=== PATIENT | female | born 1970 | race Caucasian/White ===

== ENCOUNTER 2024-05-24 21:31 | Observation (INO) ==
--- NOTE | 2024-05-24 21:41 | Emergency Department Note ---
Impression & Plan Chest pain, Acute hypokalemia ED Provider Note NAME: DARRYL LINDSEY AGE: 53 SEX: F : 1970 ARRIVES VIA: Walk-In INFORMANT: Patient, ED PROVIDER(S): Kulwinder Waldrop MD CHIEF COMPLAINT: Chest pain MEDICAL DECISION MAKING: Patient presents due to concern for chest pain. IV was established and blood work was obtained. Patient's blood work shows a normal white count H&H and platelet count kidney function is unremarkable mild hypokalemia. Initial troponin negative. EKG without signs of obvious ischemia but not having any active chest pain. Patient was ordered aspirin 324. Discussed given the patient's brief symptoms difficult to rule out here in the department did suggest overnight monitoring trending enzymes echo and potential discussion with cardiology. Patient is agreeable. I did speak with the on-call hospitalist service Dr. Dempsey and the patient was admitted to the medicine service. Patient was reassessed and states that she did have another brief episode of chest pain but was unable to get her call button to have a repeat EKG performed. Discussion w/ other healthcare providers: Dr. Dempsey inpatient medicine service Prior /Outside records reviewed: None Differential diagnosis: Cardiac ischemia, aortic dissection, pulmonary embolism, pneumothorax, pneumonia, pericarditis, myocarditis, GERD, cholecystitis, pancreatitis, musculoskeletal, as well as other pathologies were considered. Diagnostics, as interpreted by me: ECG: Sinus rhythm, rate of 74, normal intervals, normal axis T wave flattening in V2 no obvious ST elevations. Cardiac monitoring: An order was placed for continuous cardiac monitoring. The monitor shows a rate of 75 with sinus rhythm. Patient was placed on pulse oximetry Medical decision rules: Heart score Imaging studies: I informally interpreted the patient's chest x-ray does not show obvious pneumonia or pneumothorax, elevation of the right hemidiaphragm noted with formal report to follow. HPI: Patient presents due to concern for chest pains. The patient states that she noticed this about 3 weeks ago but is left-sided and would radiate underneath the left breast. The patient states that she had a subsequent episode 2 weeks ago as well as last week both were brief in duration lifting several minutes. The patient states though that today the patient experienced some pain that was left-sided with radiation toward the back and then as well some associated pain that she described as pressure to the left side of her jaw. Patient denies any known family history of heart attack or stroke in parents or siblings before the age of 65. Patient denies any cardiac or lung history. Patient is a non-smoker. Patient did use to take estrogen replacement therapy but stopped in April. No recent surgeries procedures or hospitalizations and no recent prolonged car plane travel. Patient denies any leg swelling or calf pain. Patient denies any cough or fever. PAST MEDICAL HISTORY: See Below PAST SURGICAL HISTORY: See Below SOCIAL HISTORY: See Below HOME MEDICATIONS: See Below ALLERGIES: See Below VITALS: See Below PHYSICAL EXAMINATION: GENERAL: NAD, non-toxic. EYE EXAM: Normal conjunctiva. PERRL, no anisocoria and EOM's grossly intact w/o pain. OROPHARYNX: Moist mucus membranes, grossly normal dentition. NECK: Trachea midline, no stridor. Supple, no nuchal rigidity, no adenopathy, non-tender. No signs of meningismus. FROM of the neck with good chin to chest and neck extension. LUNGS: Clear to auscultation. Normal chest wall mechanics. HEART: NSR, no MRG. ABDOMEN: Abdomen soft, non-tender, no masses, no rebound or guarding. BACK: No CVA TTP. SKIN: No rashes and no bruising. UPPER EXTREMITIES: Upper extremities are grossly normal. LOWER EXTREMITIES: Grossly normal, no edema. Negative Homans' sign bilaterally. NEURO EXAM: A&O x3, cranial nerves II-XII grossly intact, normal speech, moves all 4 extremities. Past Med/Surg History Problem List (Updated 05/25/24 @ 00:06 by Kulwinder Waldrop MD) Acute hypokalemia (Acute) Chest pain (Acute) Hypothyroidism since age 28 Crohn's disease Hemorrhoids Diarrhea Medical History Hx of colonic polyps History of COVID-19 12/2020: moderate flu symptoms, since resolved Crohn disease no medications, manages with diet. History of melanoma in situ 2013 s/p excision - L mid back Surgical History H/O melanoma excision (2013) History of colonoscopy 07/2020 dx with Crohn's disease Family History Father Colorectal cancer Mother Diabetes Hypertension Sister Crohn's disease Ulcerative colitis Grandmother (Paternal) Heart disease Brother Prostate cancer Other No family history of adverse response to anesthesia Denies family history of Ovarian cancer Myocardial infarction Breast cancer Lung cancer Stroke Social History Smoking Status: Never smoker Second Hand Exposure: No; Do You Dip or Chew Tobacco: No; Hx Alcohol Use: Yes Alcohol Intake Frequency: Monthly or Less Hx Substance Use: No Preferred Language: Bur[place]ian Communication Ability: Effective Visual Impairment: Limited Hearing Ability: Normal Wireless Development Manager Required: No Beliefs That Will Affect Care: None marital status: Current Living Situation: Spouse current occupational status: employed How many Children do You have: 2 Feels Safe at Home: Yes Childhood Exposure to Second-Hand Smoke: No Diet: regular caffeine: Yes Dental Care, Regularly: Yes Physical Activity Frequency: 3-4 Times per Week Seatbelt Use: always Sunscreen Use: Yes Assistive Devices: Glasses Allergies Allergies Allergy/AdvReac Type Severity Reaction Status Date / Time No Known Allergies Allergy Verified 02/02/24 11:05 Home Meds Home Medications Medication Instructions Recorded Confirmed estradiol 2 mg tablet 1 mg PO QAM 01/23/24 02/02/24 levothyroxine 50 mcg tablet 50 mcg PO QAM 01/23/24 02/02/24 progesterone micronized 100 mg 100 mg PO HS 01/23/24 02/02/24 capsule Results & Data (ED) Vital Signs Vital Signs - 24 hr 05/24/24 21:31 05/24/24 21:31 05/24/24 21:31 Temperature Temperature Source Pulse Rate 76 Pulse Rate [Right Brachial] 76 Pulse Rhythm Regular Pulse Rhythm [Right Brachial] Regular Pulse Strength [Right Brachial] Normal Respiratory Rate 24 20 Respiratory Effort / Characteristics Non-Labored Respiratory Depth Normal Respiratory Pattern Regular Blood Pressure Blood Pressure [Right Arm] 140/80 Blood Pressure Mean Blood Pressure Mean [Right Arm] 100 Blood Pressure Position [Right Arm] Lying Pulse Oximetry 96 96 Oxygen Delivery Method Room Air Room Air Room Air Sepsis Recent Fever Within 48 Hours Sepsis New/Unexplained Change in Mental Status Sepsis Action Taken by Nursing 05/24/24 21:34 05/24/24 21:37 05/24/24 21:55 Temperature 37.2 C Temperature Source Temporal Artery Scan Pulse Rate 91 H 76 83 Pulse Rate [Right Brachial] Pulse Rhythm Regular Pulse Rhythm [Right Brachial] Pulse Strength [Right Brachial] Respiratory Rate 17 20 Respiratory Effort / Characteristics Respiratory Depth Normal Respiratory Pattern Blood Pressure 148/92 H Blood Pressure [Right Arm] Blood Pressure Mean 110 Blood Pressure Mean [Right Arm] Blood Pressure Position [Right Arm] Pulse Oximetry 97 96 Oxygen Delivery Method Room Air Room Air Sepsis Recent Fever Within 48 Hours No Sepsis New/Unexplained Change in Mental Status No Sepsis Action Taken by Nursing No Action Required Home Medications Current Medication List: was personally reviewed by me Laboratory Data Attestation: I reviewed the patient's lab results. 05/24/24 21:46 05/24/24 21:46 Lab Results 05/24/24 Range/Units 21:46 WBC 6.83 (4.8-10.8) K/ul RBC 4.87 (4.20-5.40) M/uL Hgb 14.0 (12.0-16.0) g/dl Hct 42.0 (37.0-47.0) % MCV 86.2 (80.0-100.0) fL MCH 28.7 (25.0-34.0) pg MCHC 33.3 (32.0-36.0) g/dL RDW Std Deviation 39.6 (36.4-46.3) fL RDW Coeff of Rogers 12.7 (11.5-14.5) % Plt Count 317 (130-400) K/uL MPV 8.9 L (9.4-12.4) fL Immature Gran % (Auto) 0.1 % Neut % (Auto) 39.1 % Lymph % (Auto) 48.6 % [place] % (Auto) 9.5 % Eos % (Auto) 1.8 % Baso % (Auto) 0.9 % Neut # (Auto) 2.67 (1.40-6.50) K/uL Lymph # (Auto) 3.32 (1.20-3.40) K/uL [place] # (Auto) 0.65 H (0.11-0.59) K/uL Eos # (Auto) 0.12 (0.00-0.50) K/uL Baso # (Auto) 0.06 (0.00-0.20) K/uL Immature Gran # (Auto) 0.01 (0.01-0.20) K/uL Sodium 139 (136-145) mmol/L Potassium 3.4 L (3.5-5.1) mmol/L Chloride 102 (98-107) mmol/L Carbon Dioxide 29 (21-32) mmol/L Anion Gap 8 (3-11) BUN 14 (6-23) mg/dl Creatinine 0.79 (0.6-1.2) mg/dl Est Cr Clr Drug Dosing 93.3 ml/min eGFR 89.95 BUN/Creatinine Ratio 17.7 (10-20) Glucose 97 (70-99(Fasting)) mg/dl Calcium 9.8 (8.6-10.3) mg/dl Total Bilirubin 0.9 (0.2-1.0) mg/dl AST 21 (13-39) U/L ALT 20 (7-52) U/L Alkaline Phosphatase 51 (34-104) U/L Troponin I High Sens 13.1 (0-14) pg/ml Total Protein 7.8 (6.0-8.3) gm/dl Albumin 4.6 (3.4-5.0) gm/dl Globulin 3.2 (2.5-4.0) gm/dl Albumin/Globulin Ratio 1.4 (0.9-2) Lipase 33 (11-82) U/L Administered Medications Discontinued Medications Aspirin (Aspirin Chew 324 Mg) 324 mg PO NOW STA Stop: 05/24/24 22:22 Last Admin: 05/24/24 22:27 Dose: 324 mg Documented By: ROMI Ioversol (Optiray 320 125ml) 120 ml IV ONCE ONE Stop: 05/24/24 23:30 Last Admin: 05/24/24 23:30 Dose: 120 ml Documented By: KSF Discharge Plan Visit Data Chief Complaint: Chest Pain Stated Complaint: CHEST PAIN ED Provider: Kulwinder Waldrop Discharge Problem: Chest pain, Acute hypokalemia Forms Stand Alone Forms: My Novat[facility] Prescriptions Prescriptions: No Action levothyroxine 50 mcg tablet 50 mcg PO QAM estradiol 2 mg tablet 1 mg PO QAM progesterone micronized 100 mg capsule 100 mg PO HS Referrals Referrals: Artem Jerry DO [Primary Care Provider] - Discharge Problem: Chest pain Qualifiers: Chest pain type: unspecified Qualified Code(s): R07.9 - Chest pain, unspecified
[2024-05-24 22:06] LABS: Basophils # (auto) 0.06 K/uL (0.00-0.20); Basophils % (auto) 0.9 %; Eosinophils # (auto) 0.12 K/uL (0.00-0.50); Eosinophils % (auto) 1.8 %; Immature Granulocytes # (auto) 0.01 K/uL (0.01-0.20); Immature Granulocytes % (auto) 0.1 %; Lymphocytes # (auto) 3.32 K/uL (1.20-3.40); Lymphocytes % (auto) 48.6 %; Mean Corpuscular Hemoglobin 28.7 pg (25.0-34.0); Mean Corpuscular Hgb Conc 33.3 g/dL (32.0-36.0); Mean Corpuscular Volume 86.2 fL (80.0-100.0); Mean Platelet Volume 8.9 fL (9.4-12.4); Monocytes # (auto) 0.65 K/uL (0.11-0.59); Monocytes % (auto) 9.5 %; Neutrophils # (auto) 2.67 K/uL (1.40-6.50); Neutrophils % (auto) 39.1 %; Platelet Count 317 K/uL (130-400); RDW Coefficient of Variation 12.7 % (11.5-14.5); RDW Standard Deviation 39.6 fL (36.4-46.3); Red Blood Count 4.87 M/uL (4.20-5.40); White Blood Count 6.83 K/ul (4.8-10.8)
[2024-05-24 22:13] LABS: Albumin Globulin Ratio 1.4 (0.9-2); Albumin Level 4.6 gm/dl (3.4-5.0); BUN Creatinine Ratio 17.7 (10-20); Bilirubin,Total 0.9 mg/dl (0.2-1.0); Calcium 9.8 mg/dl (8.6-10.3); Creatinine Clr Calc Pharmacy 93.3 ml/min; Globulin 3.2 gm/dl (2.5-4.0); Potassium 3.4 mmol/L (3.5-5.1); Total Protein 7.8 gm/dl (6.0-8.3)
[2024-05-24 22:20] LABS: Troponin I High Sensitivity 13.1 pg/ml (0-14)
[2024-05-24] MEDS: ASPIRIN CHEW 324 MG PO STA (22:27)
[2024-05-24] MEDS: OPTIRAY 320 125ml IV ONE (23:30)
--- NOTE | 2024-05-24 23:30 | History & Physical Report ---
Date of Service May 24, 2024 Assessment & Plan (1) Chest pain: (2) Hypothyroidism: (3) Crohn's disease: (4) Acute hypokalemia: Plan Atypical chest pain- Patient reports increasing frequency, duration and intensity past 4 weeks, with particular over the past evening. The patient will be admitted to telemetry for serial cardiac enzymes, serial EKG's, cardiac rhythm monitoring and a 2-D echocardiogram with Dopplers. CT angiography PE protocol was negative for PE, and aortic dissection Initial troponin of 13.1, with follow-up 11.4 She did receive aspirin 324 mg upon arrival Patient reports that she has been increasing running, and was actually planning on [place] [employer] [email or web address] with her 10-year-old granddaughter on 05/26 Would be unable to have a stress test done over the weekend, will therefore consult cardiology for their opinion on whether she can safely run a 5K run, if her workup is otherwise negative Crohn's disease- Patient reports 4-5 many flares a week, but does not describe any symptoms of GERD with or without esophagitis It is possible her symptoms may be related to this underlying disease Will give pantoprazole 40 mg IV now, and 40 mg p.o. every morning. If cardiac workup is negative, a trial of PPI would probably be evaluated Hypokalemia- Potassium 3.4 on admission, will recheck in the a.m. after diet this evening Add magnesium level Hypothyroidism Dosing has been stable on levothyroxine 50 mcg daily History of Present Illness Chief Complaint: The patient presents to the emergency department, with her present in the room also, with complaint of increasing frequency, duration, and intensity of left sided chest pain over the past 4 weeks. Primary Care Provider: Artem Jerry DO The patient is a 53-year-old female with a past medical history including hypothyroidism, and Crohn's disease with many flares averaging 4-5 times per week. She reports that about 4 weeks ago, was the first time she had left-sided chest pain, woke her up at night when she was sleeping, and went away very quickly. A similar process happened 3 weeks ago, and then 2 weeks ago. This most recent instance this evening, would last for 2 to 3 minutes on, then be off for a few minutes, and then recurred again. This occurred over an interval of 30 minutes, she became concerned, and decided to come to the ED for assessment. She reports that she has been running more over the past 2 months, and was planning on running a 5K with her 10-year-old granddaughter in 2 days. Allergies Allergy/AdvReac Type Severity Reaction Status Date / Time No Known Allergies Allergy Verified 02/02/24 11:05 Home Medications Medication Instructions Recorded Confirmed Type levothyroxine 50 mcg tablet 50 mcg PO QAM 01/23/24 05/25/24 History Past Med/Surg History Problem List (Updated 05/25/24 @ 00:06 by Kulwinder Waldrop MD) Acute hypokalemia (Acute) Chest pain (Acute) Hypothyroidism since age 28 Crohn's disease Hemorrhoids Diarrhea Medical History Hx of colonic polyps History of COVID-19 12/2020: moderate flu symptoms, since resolved Crohn disease no medications, manages with diet. History of melanoma in situ 2013 s/p excision - L mid back Surgical History H/O melanoma excision (2013) History of colonoscopy 07/2020 dx with Crohn's disease Family History Father Colorectal cancer Mother Diabetes Hypertension Sister Crohn's disease Ulcerative colitis Grandmother (Paternal) Heart disease Brother Prostate cancer Other No family history of adverse response to anesthesia Denies family history of Ovarian cancer Myocardial infarction Breast cancer Lung cancer Stroke Social History Smoking Status: Never smoker Second Hand Exposure: No; Do You Dip or Chew Tobacco: No; Hx Alcohol Use: Yes Alcohol Intake Frequency: Monthly or Less Hx Substance Use: No Preferred Language: Icelandic Communication Ability: Effective Visual Impairment: Limited Hearing Ability: Normal Instrumentation Controls Engineer Required: No Beliefs That Will Affect Care: None marital status: Current Living Situation: Spouse current occupational status: employed How many Children do You have: 2 Other Information That Helps Us Care for You: No Feels Safe at Home: Yes Safety Concerns: Feels Safe At This Time Childhood Exposure to Second-Hand Smoke: No Diet: regular caffeine: Yes Dental Care, Regularly: Yes Physical Activity Frequency: 3-4 Times per Week Seatbelt Use: always Sunscreen Use: Yes Assistive Devices: None Review of Systems Review of Systems: The patient denies palpitations, shortness of breath, dyspnea on exertion, cough, lower extremity swelling, sore throat, fevers, chills, sweats, fatigue, nausea, vomiting, diarrhea , constipation, abdominal pain, pelvic pain, blood in urine or stool, dysuria, urinary frequency or urgency, lightheadedness, dizziness, headache, memory loss, loss of consciousness, rash, abnormal bruising or bleeding, imbalance, focal or generalized weakness, numbness or tingling in arms or legs, generalized arthralgias or myalgias, back or neck pain, or night sweats. The review of systems is otherwise negative other than for that already noted above, and at least 10 systems have been reviewed. Physical Exam Physical Exam: The patient is awake, alert and oriented 3, well developed and well nourished, normocephalic and atraumatic, lying in bed and in no acute distress. HEENT--PERRL, EOMI, mucous membranes and oropharynx normal Neck--supple. No JVD. No bruits. Thyroid normal, trachea midline, no adenopathy. Heart--normal S1 and S2. No murmurs, rubs or gallops. Lungs--clear bilaterally, no respiratory distress, no accessory muscle use. Abdomen--normal bowel sounds and soft. Nontender. Nondistended, no hernias or masses, no organomegaly. Extremities--no cyanosis or clubbing. No edema. Dermatologic--normal skin turgor, normal color, no abnormal lymph nodes, no rash. Neurologic--cranial nerves II through XII grossly intact. Rheumatologic--normal range of motion. Psychiatric--normal affect. Results & Data Results & Data Vital Signs (Past 12 Hours) Vital Signs Temp Pulse Pulse Resp BP BP Pulse Ox 05/24/24 21:55 83 05/24/24 21:37 76 20 96 05/24/24 21:34 37.2 C 91 H 17 148/92 H 97 05/24/24 21:31 76 20 96 05/24/24 21:31 76 24 140/80 96 05/24/24 21:31 O2 Del Method 05/24/24 21:55 05/24/24 21:37 Room Air 05/24/24 21:34 Room Air 05/24/24 21:31 Room Air 05/24/24 21:31 Room Air 05/24/24 21:31 Room Air Laboratory Results Laboratory Results WBC 6.83 K/ul (4.8-10.8) 05/24/24 21:46 RBC 4.87 M/uL (4.20-5.40) 05/24/24 21:46 Hgb 14.0 g/dl (12.0-16.0) 05/24/24 21:46 Hct 42.0 % (37.0-47.0) 05/24/24 21:46 MCV 86.2 fL (80.0-100.0) 05/24/24 21:46 MCH 28.7 pg (25.0-34.0) 05/24/24 21:46 MCHC 33.3 g/dL (32.0-36.0) 05/24/24 21:46 RDW Std Deviation 39.6 fL (36.4-46.3) 05/24/24 21:46 RDW Coeff of Rogers 12.7 % (11.5-14.5) 05/24/24 21:46 Plt Count 317 K/uL (130-400) 05/24/24 21:46 MPV 8.9 fL (9.4-12.4) L 05/24/24 21:46 Immature Gran % (Auto) 0.1 % 05/24/24 21:46 Neut % (Auto) 39.1 % 05/24/24 21:46 Lymph % (Auto) 48.6 % 05/24/24 21:46 [place] % (Auto) 9.5 % 05/24/24 21:46 Eos % (Auto) 1.8 % 05/24/24 21:46 Baso % (Auto) 0.9 % 05/24/24 21:46 Neut # (Auto) 2.67 K/uL (1.40-6.50) 05/24/24 21:46 Lymph # (Auto) 3.32 K/uL (1.20-3.40) 05/24/24 21:46 [place] # (Auto) 0.65 K/uL (0.11-0.59) H 05/24/24 21:46 Eos # (Auto) 0.12 K/uL (0.00-0.50) 05/24/24 21:46 Baso # (Auto) 0.06 K/uL (0.00-0.20) 05/24/24 21:46 Immature Gran # (Auto) 0.01 K/uL (0.01-0.20) 05/24/24 21:46 Sodium 139 mmol/L (136-145) 05/24/24 21:46 Potassium 3.4 mmol/L (3.5-5.1) L 05/24/24 21:46 Chloride 102 mmol/L (98-107) 05/24/24 21:46 Carbon Dioxide 29 mmol/L (21-32) 05/24/24 21:46 Anion Gap 8 (3-11) 05/24/24 21:46 BUN 14 mg/dl (6-23) 05/24/24 21:46 Creatinine 0.79 mg/dl (0.6-1.2) 05/24/24 21:46 Est Cr Clr Drug Dosing 93.3 ml/min 05/24/24 21:46 eGFR 89.95 05/24/24 21:46 BUN/Creatinine Ratio 17.7 (10-20) 05/24/24 21:46 Glucose 97 mg/dl (70-99(Fasting)) 05/24/24 21:46 Calcium 9.8 mg/dl (8.6-10.3) 05/24/24 21:46 Total Bilirubin 0.9 mg/dl (0.2-1.0) 05/24/24 21:46 AST 21 U/L (13-39) 05/24/24 21:46 ALT 20 U/L (7-52) 05/24/24 21:46 Alkaline Phosphatase 51 U/L (34-104) 05/24/24 21:46 Troponin I High Sens 11.4 pg/ml (0-14) 05/25/24 00:27 Total Protein 7.8 gm/dl (6.0-8.3) 05/24/24 21:46 Albumin 4.6 gm/dl (3.4-5.0) 05/24/24 21:46 Globulin 3.2 gm/dl (2.5-4.0) 05/24/24 21:46 Albumin/Globulin Ratio 1.4 (0.9-2) 05/24/24 21:46 Lipase 33 U/L (11-82) 05/24/24 21:46 Code Status & VTE Plan Code Status Full code VTE Prophylaxis Plan VTE Prophylaxis will be ordered: Yes PG Care Time/CCT Total # of Minutes Spent Total Time Spent with Patient: Total time spent is greater than 50% in coordination of care (as documented) at patient's floor/unit and/or counseling patient: Coding Level of Care Code 04729 INT INP/OBS CARE 3/75MIN Diagnoses Chest pain R07.9 Chest pain type: unspecified Hypothyroidism E03.9 Crohn's disease K50.90 Acute hypokalemia E87.6 (1) Chest pain Chest pain type: unspecified Qualified Code(s): R07.9 - Chest pain, unspecified
[2024-05-25] MEDS: PANTOprazole 40 MG/10 ML SYR IV ONE (00:13)
[2024-05-25] MEDS ORDERED: ONDANSETRON INJ 2 MG/ML 2 ML VIAL IV PRN (01:04)
[2024-05-25] MEDS ORDERED: ACETAMINOPHEN 325 MG TAB PO PRN (01:04)
[2024-05-25] MEDS ORDERED: NITROGLYCERIN SL 0.4 MG/TAB TAB SL PRN (01:04)
[2024-05-25 01:30] VITALS: RESP 18; TEMP 97.7
[2024-05-25] MEDS: LEVOTHYROXINE SODIUM 50 MCG TABLET PO SCH (05:59)
[2024-05-25 06:48] LABS: Calcium 8.9 mg/dl (8.6-10.3); Creatinine Clr Calc Pharmacy 92.1 ml/min; Magnesium 1.9 mg/dl (1.7-2.4)
[2024-05-25 07:12] VITALS: BP 104/62; O2SAT 96
--- NOTE | 2024-05-25 07:20 | Electrocardiogram Report ---
Test Reason : Blood Pressure : */* mmHG Vent. Rate : 74 BPM Atrial Rate : 74 BPM P-R Int : 172 ms QRS Dur : 74 ms QT Int : 396 ms P-R-T Axes : 5 53 32 degrees QTcB Int : 439 ms Normal sinus rhythm Normal ECG No previous ECGs available Confirmed by Ludwin Crocker ([id number]) on 05/25/2024 7:19:44 AM Referred By: REFERRED SELF Confirmed By: Ludwin Crocker
--- NOTE | 2024-05-25 09:03 | Cardiology Consultation ---
Date of Consultation May 25, 2024 Assessment & Plan (1) Chest pain: Plan 1. Chest pain: Atypical for a cardiac etiology as it occurs at rest and is very brief in duration. There are no objective findings of ischemia. Her EKG is normal and her biomarkers are also normal. She apparently had 2 additional episodes of symptoms while she was in the emergency room without noted abnormality on telemetry. A chest CTA was performed and was reportedly normal (although the formal report is still pending at the time of this dictation). Echocardiogram was normal. Telemetry was normal. She exercises regularly despite having these symptoms over period of 3 weeks. 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 Possibly related to gastrointestinal disturbance, IE reflux or spasm. If her CTA is truly normal I think she can be safely discharged and participate in the scheduled 5 km run tomorrow. I do not think she requires any specific follow-up in our clinic in the absence of new or worsening symptoms. History of Present Illness Reason for Consultation: Chest pain Requesting Physician: Tomas Attending Physician: Jordyn Davis MD History of Present Illness The patient is a 53-year-old woman without a known history of cardiac disease who presented to the emergency room with symptoms of chest pain. The patient states that approximately 3 weeks ago she had an episode of chest pain at rest. This was precordial in location. It was described as a pressure type sensation. There is no radiation at that time and this symptom was of moderate intensity. She did take some deep breaths in an attempt to relieve the symptom but did not feel short of breath or dizzy. There was no pleuritic pain. There is no associated palpitation. This symptom lasted less than 1 minute and resolved. Several days later she had another similar episode of the same character and duration. Last evening she had an episode that was similar but also involves some back discomfort. This episode also lasted approximately 1 minute and then resolved without intervention. Based on the recurrent nature of her symptoms and the involvement of back discomfort she elected to come to the emergency room for an evaluation. The patient has been very active lately. She has been training for a 5K event scheduled for tomorrow. Her training program involves running 2 to 3 miles 3 times weekly. She did not report any symptoms associated with that activity. She has not had any exertional chest pain. She has not had to alter or reduce her training program recently. She also engages in resistance training. No symptoms associated with that activity. She did discontinue hormone replacement therapy a little over a month ago. This is resulted in some "hot flashes" and other relatively mild symptoms. She does not have any strong family history of heart disease. Allergies Allergy/AdvReac Type Severity Reaction Status Date / Time No Known Allergies Allergy Verified 02/02/24 11:05 Home Medications Medication Instructions Recorded Confirmed Type levothyroxine 50 mcg tablet 50 mcg PO QAM 01/23/24 05/25/24 History Patient History Medical History Hx of colonic polyps History of COVID-19 12/2020: moderate flu symptoms, since resolved Crohn disease no medications, manages with diet. History of melanoma in situ 2013 s/p excision - L mid back Surgical History H/O melanoma excision (2013) History of colonoscopy 07/2020 dx with Crohn's disease Family History Father Colorectal cancer Mother Diabetes Hypertension Sister Crohn's disease Ulcerative colitis Grandmother (Paternal) Heart disease Brother Prostate cancer Other No family history of adverse response to anesthesia Denies family history of Ovarian cancer Myocardial infarction Breast cancer Lung cancer Stroke Social History Smoking Status: Never smoker Second Hand Exposure: No; Do You Dip or Chew Tobacco: No; Hx Alcohol Use: Yes Alcohol Intake Frequency: Monthly or Less Hx Substance Use: No Preferred Language: Tuvaluan Communication Ability: Effective Visual Impairment: Limited Hearing Ability: Normal Screen Vent Binder Required: No Beliefs That Will Affect Care: None marital status: Current Living Situation: Spouse current occupational status: employed How many Children do You have: 2 Feels Safe at Home: Yes Childhood Exposure to Second-Hand Smoke: No Diet: regular caffeine: Yes Dental Care, Regularly: Yes Physical Activity Frequency: 3-4 Times per Week Seatbelt Use: always Sunscreen Use: Yes Assistive Devices: None Review of Systems Review of Systems: Per HPI. She does have some abdominal discomfort and symptoms from Crohn's disease on a fairly regular basis. She manages this with diet and the symptoms are reportedly mild. Generally she does not have indigestion or stomach trouble. Physical Exam Physical Exam: She is alert and oriented x3. Mood affect appear normal. She answered all questions appropriately. HEENT: Sclerae are anicteric. Pupils are equal and reactive to light and accommodation. Extraocular movements were intact. Neuro: Cranial nerves intact Neck: Examination of the submandibular region did not reveal any significant lymphadenopathy. Carotids are palpable bilaterally and free of bruits on auscultation. There was no evidence of jugular venous distention. The thyroid was not enlarged. Chest: No pain with palpation of the precordium or chest. Lungs: Lungs are clear to auscultation bilaterally. There are no rales wheezes or rhonchi. She has normal respiratory effort without use of accessory muscles. There is normal pulmonary excursion. Cardiac: The rhythm was regular. S1 and S2 were normal. There are no murmurs on examination. The PMI was not markedly displaced on palpation. Abdomen: The abdomen was soft and nontender. Extremities: Patient has bilateral radial pulses that are equal in intensity. There is no evidence cyanosis or clubbing. There was no evidence of significant peripheral edema bilaterally. Skin: There are no rashes noted on examination today. Results & Data Vital Signs (Past 12 Hours) Vital Signs Temp Pulse Pulse Resp BP BP Pulse Ox 05/25/24 07:11 36.5 C 65 18 104/62 96 05/25/24 06:35 106/65 05/25/24 04:18 36.5 C 71 18 97/68 L 94 05/25/24 01:04 36.5 C 80 18 111/73 94 05/25/24 00:55 63 05/25/24 00:25 80 20 126/65 96 05/25/24 00:17 80 20 126/65 96 05/24/24 21:55 83 05/24/24 21:37 76 20 96 05/24/24 21:34 37.2 C 91 H 17 148/92 H 97 05/24/24 21:31 76 20 96 05/24/24 21:31 76 24 140/80 96 05/24/24 21:31 O2 Del Method 05/25/24 07:11 Room Air 05/25/24 06:35 05/25/24 04:18 Room Air 05/25/24 01:04 Room Air 05/25/24 00:55 05/25/24 00:25 Room Air 05/25/24 00:17 Room Air 05/24/24 21:55 05/24/24 21:37 Room Air 05/24/24 21:34 Room Air 05/24/24 21:31 Room Air 05/24/24 21:31 Room Air 05/24/24 21:31 Room Air Laboratory Results Abnormal Lab Results 05/24/24 05/25/24 05/25/24 21:46 00:27 06:11 WBC 6.83 RBC 4.87 Hgb 14.0 Hct 42.0 MCV 86.2 MCH 28.7 MCHC 33.3 RDW Std Deviation 39.6 RDW Coeff of Rogers 12.7 Plt Count 317 MPV 8.9 L Immature Gran % (Auto) 0.1 Neut % (Auto) 39.1 Lymph % (Auto) 48.6 [facility] % (Auto) 9.5 Eos % (Auto) 1.8 Baso % (Auto) 0.9 Neut # (Auto) 2.67 Lymph # (Auto) 3.32 [facility] # (Auto) 0.65 H Eos # (Auto) 0.12 Baso # (Auto) 0.06 Immature Gran # (Auto) 0.01 Sodium 139 142 Potassium 3.4 L 4.0 Chloride 102 109 H Carbon Dioxide 29 27 Anion Gap 8 6 BUN 14 12 Creatinine 0.79 0.80 Est Cr Clr Drug Dosing 93.3 92.1 eGFR 89.95 88.60 BUN/Creatinine Ratio 17.7 15.0 Glucose 97 115 H Calcium 9.8 8.9 Magnesium 1.9 Total Bilirubin 0.9 AST 21 ALT 20 Alkaline Phosphatase 51 Troponin I High Sens 13.1 11.4 10.8 Total Protein 7.8 Albumin 4.6 Globulin 3.2 Albumin/Globulin Ratio 1.4 Lipase 33 Diagnostic Findings Chest CTA: No evidence of aortic dissection or pulmonary embolus by report (formal report still pending at the time of this dictation) Echocardiogram obtained today did not reveal any notable abnormalities. Preserved LV systolic function without regional wall motion abnormalities. No significant valvular heart disease. No pericardial effusion. PG Care Time/CCT Total # of Minutes Spent Total Time Spent with Patient: Total time spent is greater than 50% in coordination of care (as documented) at patient's floor/unit and/or counseling patient: Coding Level of Care Code 15367 IN/OBS CONSULT LVL 4,60M Diagnoses Chest pain R07.9 Chest pain type: unspecified (1) Chest pain Chest pain type: unspecified Qualified Code(s): R07.9 - Chest pain, unspecified
[2024-05-25] MEDS: CYANOCOBALAMIN (B-12) 500 MCG TABLET PO SCH (09:51)
[2024-05-25] MEDS: CHOLECALCIFEROL 25 MCG (1000 UNITS) TAB PO SCH (09:51)
[2024-05-25] MEDS: ASPIRIN 81 MG ECTAB PO SCH (09:51)
[2024-05-25] MEDS: PANTOprazole 40 MG TAB PO SCH (09:52)
[2024-05-25 10:05] VITALS: PULSE 66
--- NOTE | 2024-05-25 10:34 | Discharge Summary ---
Discharge Summary Date of Service May 25, 2024 Principal Dx & Hospital Course #1 = Principal Diagnosis (1) Chest pain: (2) Hypothyroidism: (3) Crohn's disease: (4) Acute hypokalemia: Plan Atypical chest pain- Ruled out for ACS with serial cardiac enzymes. No arrhythmic events recorded on tele. Cardiology consultation completed - outpatient follow up Crohn's disease- Patient reports 4-5 many flares a week, but does not describe any symptoms of GERD with or without esophagitis It is possible her symptoms may be related to this underlying disease If cardiac workup is negative, a trial of PPI would probably be evaluated Hypokalemia- resolved / repleted Hypothyroidism Dosing has been stable on levothyroxine 50 mcg daily Admission HPI Per Admitting Provider The patient is a 53-year-old female with a past medical history including hypothyroidism, and Crohn's disease with many flares averaging 4-5 times per week. She reports that about 4 weeks ago, was the first time she had left-sided chest pain, woke her up at night when she was sleeping, and went away very quickly. A similar process happened 3 weeks ago, and then 2 weeks ago. This most recent instance this evening, would last for 2 to 3 minutes on, then be off for a few minutes, and then recurred again. This occurred over an interval of 30 minutes, she became concerned, and decided to come to the ED for assessment. She reports that she has been running more over the past 2 months, and was planning on running a 5K with her 10-year-old granddaughter in 2 days. Discharge Exam Well appearing, comfortable Respiratory clear to auscultation b/l Cardiovascular RRR Gastrointestinal (Abdomen) SOFT / NT/ND/BS+ Neurologic AAO#3, Non focal Discharge Plan Discharge Items Patient Disposition: Home - Self-Care Reason For Visit: UNSTABLE CHEST PAIN Discharge Diagnosis: Atypical chest pain Condition on Discharge: Good Health Concerns: none Activity: Resume your previous activity Lifting: None Bathing: No limitations Driving/Machine Use: No limitations Weightbearing: Full weightbearing Non-emergency contact: Primary Care Provider and Pediatric Registered Nurse Call non-emergency contact if: your symptoms worsen Follow-up/Referrals: Artem Jerry DO [Primary Care Provider] - Diet: Regular Addtl Attending Provider Instructions: Follow up with primary care Pending Studies at Discharge: No Stand-Alone Forms: [employer]point, Smoking Cessation Medications and DC Order Prescriptions: Continued levothyroxine 50 mcg tablet 50 mcg PO QAM Discharge Orders: Discharge Order (Routine); Ordered 05/25/24 Ordered By: Jordyn Davis Admission Data Admit Date/Time: 05/24/24 23:30 Attending Provider: Jordyn Davis Admit Provider: Jules Marin Primary Care Provider: Artem Jerry Other Providers: Jules Marin; Ludwin Crocker Other Interventions: Discharge Summary Assessment (RN) Last Done: 05/25/24 10:04 Hospital Stay Data Consultations 05/24/24 23:51 ED Decision to Admit Stat 05/25/24 01:04 Consult Cardiology Routine Diagnostic Imagining Performed 05/24/24 23:17 CT angio chest PE protocol Stat Pending Results Patient Have Any Pending Studies at Discharge: No Discharge Instructions Given to Patient (Per Discharging Provider) Follow up with primary care Total Time Total Time Spent Total Time Spent (In Minutes): 35 min Coding Level of Care Code 71382 INP/OBS DISCH >30 MIN Diagnoses Chest pain R07.9 Chest pain type: unspecified Hypothyroidism E03.9 Crohn's disease K50.90 Acute hypokalemia E87.6
--- NOTE | 2024-05-25 11:16 | XCELERA ---
[id number] \\[id number]
--- NOTE | 2024-05-25 12:29 | XRay Report ---
Exam(s): XR CXR 1 VIEW EXAM: XR Chest, 1 View CLINICAL HISTORY: Reason for exam: Chest pain, nonspecific. TECHNIQUE: Frontal view of the chest. COMPARISON: No relevant prior studies available. FINDINGS: Lungs: Unremarkable. No consolidation. Pleural space: Unremarkable. No pneumothorax. Heart: Unremarkable. No cardiomegaly. Mediastinum: Unremarkable. Normal mediastinal contour. Bones/joints: Mild osteophytosis in the mid to lower thoracic spine. No acute fracture. Upper abdomen: There is no pneumoperitoneum under the diaphragm. IMPRESSION: No acute findings in the chest. Electronically signed by: Jamaal Reyez MD 05/24/24 23:42 PM
--- NOTE | 2024-05-25 12:29 | CT Scan Report ---
Exam(s): CTA CHEST IV Amt: 120 cc's optiray 320 EXAM: CT Angiography Chest With Intravenous Contrast CLINICAL HISTORY: Reason for exam: PE. TECHNIQUE: Axial computed tomographic angiography images of the chest with intravenous contrast. CTDI is 26.23 mGy and DLP is 741.98 mGy-cm. Automated exposure control was utilized for the study. A dose lowering technique was utilized adhering to the principles of ALARA. MIP reconstructed images were created and reviewed. COMPARISON: Chest x-ray from May 24, 2024 FINDINGS: Pulmonary arteries: The pulmonary arterial tree is well opacified with contrast. No pulmonary embolism is identified. Aorta: The thoracic aorta is nondilated. There is no aneurysm or dissection. Lungs: The lungs are well-inflated and clear. No infiltrate or consolidation is seen. Pleural space: Unremarkable. No significant effusion. No pneumothorax. Heart: Unremarkable. No cardiomegaly. No significant pericardial effusion. No evidence of RV dysfunction. Bones/joints: No acute fracture. No dislocation. Soft tissues: Unremarkable. Lymph nodes: Unremarkable. No enlarged lymph nodes. Other findings: Mild degenerative changes in the thoracic spine. At T8-9 there is a posterior disc marginal osteophyte measuring 5 mm narrowing the canal to 6 mm. IMPRESSION: 1. The pulmonary arterial tree is well opacified with contrast. No pulmonary embolism is identified. 2. The thoracic aorta is nondilated. There is no aneurysm or dissection. 3. The lungs are well-inflated and clear. No infiltrate or consolidation is seen. Electronically signed by: Jamaal Reyez MD 05/25/24 00:01 AM
--- NOTE | 2024-05-27 15:47 | Electrocardiogram Report ---
Test Reason : Blood Pressure : */* mmHG Vent. Rate : 72 BPM Atrial Rate : 72 BPM P-R Int : 176 ms QRS Dur : 82 ms QT Int : 416 ms P-R-T Axes : -13 49 7 degrees QTcB Int : 455 ms Normal sinus rhythm Nonspecific T wave abnormality Abnormal ECG When compared with ECG of 24-May-2024 21:42, No significant change was found Confirmed by Ludwin Crocker ([id number]) on 05/27/2024 3:46:47 PM Referred By: REFERRED SELF Confirmed By: Ludwin Crocker
== END 2024-05-25 11:32 | disposition home or self-care (01) ==
LOC: ED 21:31 → 4W 21:31 → SUATTDRO 23:30 → 4W 05-25 00:25